=== PATIENT | female | born 1990 | race Caucasian/White ===

== ENCOUNTER 2021-07-09 10:36 | Emergency (ER) | payer SELFPAY ==
[~2021-07-09] VITALS: Ht 165.1 cm; Wt 70.0 kg
[2021-07-09 11:27] VITALS: BP 133/80
[2021-07-09 13:20] LABS: BASOPHILS % 0.7 % (0.0-2.0); HEMATOCRIT. 36.1 % (36.0-48.0); HEMOGLOBIN. 12.4 g/dL (12.0-16.0); LYMPHOCYTES % 19.5 % (20.0-50.0); MEAN CORPUSCULAR HEMOGLOBIN 30.8 pg (28.0-32.0); MEAN CORPUSCULAR VOLUME 89.8 fL (81.0-99.0); MEAN PLATELET VOLUME 7.8 fl (7.4-10.4); MONOCYTES % 5.7 % (2.0-8.0); NEUTROPHILS % 74.1 % (40.0-76.0); PLATELET 192 x1000/uL (130-400); RED BLOOD CELL COUNT 4.02 mill/uL (4.2-5.4); RED CELL DISTRIBUTION WIDTH 17.2 % (11.6-14.6)
[2021-07-09 13:25] LABS: CHLORIDE 97 mEq/L (98-107)
[2021-07-09 13:38] LABS: ETHANOL BLOOD 480 mg/dL
== END 2021-07-09 17:56 | disposition left against medical advice (07) ==
LOC: ER 10:59
DX: Z53.21 Procedure and treatment not carried out due to patient leaving prior to being seen by health care provider (principal); F10.129 Alcohol abuse with intoxication, unspecified; Y90.8 Blood alcohol level of 240 mg/100 ml or more; Z59.00 Homelessness unspecified
CPT/HCPCS: 36415; 80053; 80320; 85025; G0480

== ENCOUNTER 2021-07-31 13:45 | Emergency (ER) | payer MEDICAID ==
[~2021-07-31] VITALS: Ht 147.3 cm; Wt 61.0 kg
[2021-07-31 13:49] VITALS: BP 110/55
[2021-07-31] MEDS ORDERED: ONDANSETRON HCL 4MG/2ML INJ IV STA (16:23)
[2021-07-31] MEDS ORDERED: SODIUM CHLORIDE 0.9% 1,000 ML IV ONE (16:30)
[2021-07-31 17:02] LABS: BASOPHILS % 0.4 % (0.0-2.0); EOSINOPHILS % 0.1 % (0.0-5.0); HEMATOCRIT. 23.1 % (36.0-48.0); HEMOGLOBIN. 7.7 g/dL (12.0-16.0); LYMPHOCYTES % 12.4 % (20.0-50.0); MEAN CORPUSCULAR HEMOGLOBIN 32.3 pg (28.0-32.0); MEAN CORPUSCULAR VOLUME 97.1 fL (81.0-99.0); MEAN PLATELET VOLUME 8.4 fl (7.4-10.4); MONOCYTES % 6.8 % (2.0-8.0); NEUTROPHILS % 80.3 % (40.0-76.0); PLATELET 201 x1000/uL (130-400); RED BLOOD CELL COUNT 2.37 mill/uL (4.2-5.4); RED CELL DISTRIBUTION WIDTH 18.8 % (11.6-14.6)
[2021-07-31 17:07] LABS: CHLORIDE 80 mEq/L (98-107)
[2021-07-31 17:13] LABS: ETHANOL BLOOD < 10 mg/dL
[2021-07-31 17:16] LABS: HCG SCREEN NEGATIVE
== END 2021-07-31 23:41 | disposition left against medical advice (07) ==
LOC: ER 13:45
DX: F10.129 Alcohol abuse with intoxication, unspecified (principal); H11.33 Conjunctival hemorrhage, bilateral; Y90.9 Presence of alcohol in blood, level not specified
CPT/HCPCS: 36415; 70450; 80053; 80307; 80320; 80329; 84703; 85025; J7030; 99284; G0480

== ENCOUNTER 2021-08-24 09:15 | Emergency (ER) | payer MEDICAID, OTHER ==
[~2021-08-24] VITALS: Ht 165.1 cm; Wt 65.0 kg
[2021-08-24] MEDS ORDERED: SODIUM CHLORIDE 0.9% 1,000 ML IV ONE (09:45)
[2021-08-24 10:25] LABS: HEMATOCRIT. 26.3 % (36.0-48.0); HEMOGLOBIN. 8.4 g/dL (12.0-16.0); MEAN CORPUSCULAR VOLUME 93.4 fL (81.0-99.0); MEAN PLATELET VOLUME 7.5 fl (7.4-10.4); PLATELET 313 x1000/uL (130-400); RED BLOOD CELL COUNT 2.82 mill/uL (4.2-5.4)
[2021-08-24 10:35] LABS: CHLORIDE 107 mEq/L (98-107)
[2021-08-24 10:38] LABS: HCG SCREEN NEGATIVE
[2021-08-24 10:40] LABS: INR 1.4; PROTHROMBIN TIME 15.1 sec (9.6-11.0)
[2021-08-24 11:40] LABS: PLATELET ESTIMATE NORMAL
[2021-08-24 12:25] LABS: HEMATOCRIT 24.6 % (36.0-48.0); HEMOGLOBIN 7.9 g/dL (12.0-16.0); MEAN CORPUSCULAR HEMOGLOBIN 29.4 pg (28.0-32.0); PLATELET 308 x1000/uL (130-400); RED BLOOD CELL COUNT 2.67 mill/uL (4.2-5.4)
[2021-08-24 12:51] LABS: *BARBITURATES SCREEN URINE NEGATIVE (NEGATIVE); METHADONE URINE SCREEN NEGATIVE (NEGATIVE); OPIATES URINE SCREEN NEGATIVE (NEGATIVE)
[2021-08-24 12:52] LABS: CANNABINOID URINE SCREEN NEGATIVE (NEGATIVE); PHENCYCLIDINE URINE SCREEN NEGATIVE (NEGATIVE)
[2021-08-24 12:56] LABS: *COCAINE SCREEN URINE NEGATIVE (NEGATIVE)
[2021-08-24 12:58] LABS: *AMPHETAMINES SCREEN URINE NEGATIVE (NEGATIVE)
[2021-08-24 13:00] LABS: *BENZODIAZEPINES SCREEN URINE PRESUMTIVE POSITIVE (NEGATIVE)
[2021-08-24 21:25] VITALS: BP 100/45
== END 2021-08-24 21:44 | disposition short-term general hospital (02) ==
LOC: ER 09:35
DX: D50.0 Iron deficiency anemia secondary to blood loss (chronic) (principal); S01.81XA Laceration without foreign body of other part of head, initial encounter; Z20.822 Contact with and (suspected) exposure to COVID-19; Z98.890 Other specified postprocedural states; X58.XXXA Exposure to other specified factors, initial encounter; Y93.89 Activity, other specified; Y92.89 Other specified places as the place of occurrence of the external cause; Y99.8 Other external cause status
CPT/HCPCS: 36415; 71045; 80048; 80305; 80320; 84703; 85025; 85027; 85610; 86850; 86900; 86901; 87426; 96360; 99285; J7030; 96361; G0480

== ENCOUNTER 2021-10-09 21:59 | Emergency (ER) | payer OTHER ==
[~2021-10-09] VITALS: Ht 154.9 cm; Wt 64.0 kg
[2021-10-10 03:45] VITALS: BP 110/57
== END 2021-10-10 04:36 | disposition home or self-care (01) ==
LOC: ER 21:59
DX: T51.0X1A Toxic effect of ethanol, accidental (unintentional), initial encounter (principal); Z98.890 Other specified postprocedural states; Y92.488 Other paved roadways as the place of occurrence of the external cause
CPT/HCPCS: 99283

== ENCOUNTER 2021-10-21 11:44 | Inpatient (IN) | payer OTHER ==
[~2021-10-21] VITALS: Ht 157.5 cm; Wt 78.5 kg
[2021-10-21] MEDS ORDERED: ACETAMINOPHEN 325MG TABLET PO STA (12:38)
[2021-10-21] MEDS ORDERED: SODIUM CHLORIDE 0.9% 1,000 ML IV ONE ×2 (12:45→18:45)
[2021-10-21 13:47] LABS: CHLORIDE 86 mEq/L (98-107)
[2021-10-21 13:50] LABS: EOSINOPHILS % 0.1 % (0.0-5.0); HEMOGLOBIN. 9.1 g/dL (12.0-16.0)
[2021-10-21 13:51] LABS: ETHANOL BLOOD < 10 mg/dL
[2021-10-21 13:52] LABS: HCG SCREEN NEGATIVE
[2021-10-21 13:57] LABS: BASOPHILS % 0.3 % (0.0-2.0); HEMATOCRIT. 27.8 % (36.0-48.0); LYMPHOCYTES % 16.8 % (20.0-50.0); MEAN CORPUSCULAR HEMOGLOBIN 28.3 pg (28.0-32.0); MEAN CORPUSCULAR VOLUME 86.7 fL (81.0-99.0); MEAN PLATELET VOLUME 8.2 fl (7.4-10.4); MONOCYTES % 10.1 % (2.0-8.0); NEUTROPHILS % 72.7 % (40.0-76.0); PLATELET 103 x1000/uL (130-400); RED BLOOD CELL COUNT 3.21 mill/uL (4.2-5.4); RED CELL DISTRIBUTION WIDTH 17.5 % (11.6-14.6)
[2021-10-21] MEDS ORDERED: POTASSIUM CHLORIDE INJ 40 MEQ in DEXT 5% WATER 500 ML IV ONE (14:00)
[2021-10-21] MEDS ORDERED: CHLORDIAZEPOXIDE 25MG CAPSULE PO ONE (14:00)
[2021-10-21] MEDS ORDERED: POTASSIUM CHLORIDE 20MEQ TABLET SR PO ONE (14:00)
[2021-10-21] MEDS ORDERED: IOHEXOL-300 100 ML BOTTLE ONE (16:26)
[2021-10-21] MEDS ORDERED: KETOROLAC 15MG/ML VIAL IV ONE (19:30)
[2021-10-21] MEDS ORDERED: CHLORDIAZEPOXIDE 10MG CAPSULE PO SCH (19:30)
[2021-10-22] VITALS (21 sets, daily range): BP systolic 80–120; BP diastolic 21–78
[2021-10-22] MEDS ORDERED: ONDANSETRON HCL 4MG/2ML INJ IV PRN (01:00)
[2021-10-22] MEDS: SODIUM CHLORIDE 0.9% 1,000 ML IV SCH ×2 (01:26→13:21)
[2021-10-22 06:22] LABS: BASOPHILS % 0.8 % (0.0-2.0); EOSINOPHILS % 0.8 % (0.0-5.0); LYMPHOCYTES % 14.7 % (20.0-50.0); MEAN CORPUSCULAR HEMOGLOBIN 28.5 pg (28.0-32.0); MEAN CORPUSCULAR VOLUME 86.3 fL (81.0-99.0); MEAN PLATELET VOLUME 8.3 fl (7.4-10.4); MONOCYTES % 11.3 % (2.0-8.0); NEUTROPHILS % 72.4 % (40.0-76.0); PLATELET 75 x1000/uL (130-400); RED BLOOD CELL COUNT 2.34 mill/uL (4.2-5.4); RED CELL DISTRIBUTION WIDTH 17.2 % (11.6-14.6)
[2021-10-22] MEDS ORDERED: PANTOPRAZOLE 40MG DR TABLET PO SCH (06:30)
[2021-10-22 06:54] LABS: HEMATOCRIT. 20.2 % (36.0-48.0)
[2021-10-22 06:56] LABS: HEMOGLOBIN. 6.7 g/dL (12.0-16.0)
[2021-10-22 07:14] LABS: CHLORIDE 98 mEq/L (98-107)
[2021-10-22] MEDS ORDERED: PANTOPRAZOLE SODIUM 40 MG/VIAL IV SCH (09:00)
[2021-10-22] MEDS: MULTIVITAMINS,THER W-MINERALS TABLET PO SCH (09:00)
[2021-10-22] MEDS ORDERED: SODIUM CHLORIDE 0.9% 500 ML IV ONE (10:30)
[2021-10-22 11:14] LABS: TOTAL IRON BINDING CAPACITY 221 ug/dL (250-450)
[2021-10-22] MEDS: CEFEPIME 1,000 MG in DEXTROSE 5% WATER 50 ML IV SCH ×2 (13:22→23:54)
[2021-10-22 15:37] LABS: HEMATOCRIT 19.3 % (36.0-48.0); HEMOGLOBIN 6.2 g/dL (12.0-16.0)
[2021-10-22 15:42] LABS: FERRITIN 39 ng/mL (10-291)
[2021-10-22 15:53] LABS: HEPATITIS B SURFACE ANTIGEN NEGATIVE
[2021-10-22] MEDS: PANTOPRAZOLE SODIUM 40 MG/VIAL IV SCH (18:01)
[2021-10-22 18:02] LABS: VITAMIN B12 SERUM 1625 pg/mL (211-911)
[2021-10-22] MEDS: OCTREOTIDE 1,000 MCG in SODIUM CHLORIDE 0.9% 95 ML IV SCH (18:02)
[2021-10-22 20:37] LABS: BG BASE EXCESS -1.9 mmol/L (-2.0-2.0); BG CARBOXYHEMOGLOBIN 1.1 % (0.5-1.5); BG DEOXYHEMOGLOBIN 1.9 % (0.0-5.0); BG FRACTION INSPIRED OXYGEN 21; BG HCO3 ACT 20.6 mmol/L (22.0-26.0); BG METHEMOGLOBIN 0.4 % (0.0-1.5); BG OXYGEN SATURATION 98.1 % (92.0-98.5); BG OXYHEMOGLOBIN 96.6 % (94.0-97.0); BG PCO2 25.6 mmHg (35.0-45.0); BG PH 7.523 (7.350-7.450); BG PO2 102.1 mmHg (75.0-100.0); BG SAMPLE SITE LEFT RADIAL; BG TOTAL HEMOGLOBIN 6.9 g/dL (12.0-18.0); BG VENT MODE ROOM AIR
[2021-10-22] MEDS ORDERED: ACETAMINOPHEN 650MG SUPP PR PRN (21:15)
[2021-10-23] VITALS (49 sets, daily range): BP systolic 101–146; BP diastolic 52–89
[2021-10-23] MEDS: SODIUM CHLORIDE 0.9% 1,000 ML IV SCH ×3 (02:50→16:27)
[2021-10-23 06:01] LABS: BASOPHILS % 1.1 % (0.0-2.0); EOSINOPHILS % 0.2 % (0.0-5.0); HEMATOCRIT. 23.1 % (36.0-48.0); HEMOGLOBIN. 7.7 g/dL (12.0-16.0); MEAN CORPUSCULAR HEMOGLOBIN 29.1 pg (28.0-32.0); MEAN CORPUSCULAR VOLUME 87.3 fL (81.0-99.0); MEAN PLATELET VOLUME 8.1 fl (7.4-10.4); MONOCYTES % 12.1 % (2.0-8.0); NEUTROPHILS % 63.6 % (40.0-76.0); PLATELET 81 x1000/uL (130-400); RED BLOOD CELL COUNT 2.64 mill/uL (4.2-5.4); RED CELL DISTRIBUTION WIDTH 16.9 % (11.6-14.6)
[2021-10-23 06:14] LABS: CHLORIDE 104 mEq/L (98-107)
[2021-10-23 06:22] LABS: AMYLASE 50 IU/L (25-115)
[2021-10-23 06:26] LABS: INR 1.9; PROTHROMBIN TIME 19.3 sec (9.6-11.0)
[2021-10-23] MEDS: PANTOPRAZOLE SODIUM 40 MG/VIAL IV SCH ×2 (08:23→16:27)
[2021-10-23] MEDS: MULTIVITAMINS,THER W-MINERALS TABLET PO SCH (08:24)
[2021-10-23] MEDS ORDERED: LIDOCAINE HCL 1% 10 MG/ML 10ML VIAL ONE (10:29)
[2021-10-23] MEDS: CEFEPIME 1,000 MG in DEXTROSE 5% WATER 50 ML IV SCH ×2 (11:04→23:50)
[2021-10-23] MEDS: PHYTONADIONE 10MG/ML AMP SUBCUT SCH (11:40)
[2021-10-23] MEDS: OCTREOTIDE 1,000 MCG in SODIUM CHLORIDE 0.9% 95 ML IV SCH (12:50)
[2021-10-23] MEDS ORDERED: IOHEXOL-300 100 ML BOTTLE ONE (16:12)
[2021-10-24] VITALS (44 sets, daily range): BP systolic 100–147; BP diastolic 29–93
[2021-10-24] MEDS: SODIUM CHLORIDE 0.9% 1,000 ML IV SCH ×3 (05:31→23:20)
[2021-10-24 05:54] LABS: BASOPHILS % 1.3 % (0.0-2.0); EOSINOPHILS % 0.3 % (0.0-5.0); HEMATOCRIT. 27.6 % (36.0-48.0); HEMOGLOBIN. 9.2 g/dL (12.0-16.0); LYMPHOCYTES % 14.5 % (20.0-50.0); MEAN CORPUSCULAR HEMOGLOBIN 29.3 pg (28.0-32.0); MEAN CORPUSCULAR VOLUME 88.4 fL (81.0-99.0); MONOCYTES % 14.3 % (2.0-8.0); NEUTROPHILS % 69.6 % (40.0-76.0); RED BLOOD CELL COUNT 3.13 mill/uL (4.2-5.4); RED CELL DISTRIBUTION WIDTH 17.6 % (11.6-14.6)
[2021-10-24 05:56] LABS: CHLORIDE 105 mEq/L (98-107)
[2021-10-24 06:06] LABS: AMYLASE 66 IU/L (25-115)
[2021-10-24 06:10] LABS: INR 1.8; PROTHROMBIN TIME 18.1 sec (9.6-11.0)
[2021-10-24 07:57] LABS: PLATELET 115 x1000/uL (130-400)
[2021-10-24] MEDS: MULTIVITAMINS,THER W-MINERALS TABLET PO SCH (08:28)
[2021-10-24] MEDS: PHYTONADIONE 10MG/ML AMP SUBCUT SCH (08:29)
[2021-10-24] MEDS: PANTOPRAZOLE SODIUM 40 MG/VIAL IV SCH ×2 (08:29→17:17)
[2021-10-24] MEDS: OCTREOTIDE 1,000 MCG in SODIUM CHLORIDE 0.9% 95 ML IV SCH (09:35)
[2021-10-24] MEDS ORDERED: LACTULOSE 300 ML in WATER FOR IRRIGATION,STERILE 700 ML IR ONE (10:15)
[2021-10-24] MEDS: CEFEPIME 1,000 MG in DEXTROSE 5% WATER 50 ML IV SCH ×2 (11:06→23:20)
[2021-10-24] MEDS ORDERED: LACTULOSE 300 ML in WATER FOR IRRIGATION,STERILE 700 ML IR NR (12:30)
[2021-10-24 17:02] LABS: *BARBITURATES SCREEN URINE NEGATIVE (NEGATIVE); *BENZODIAZEPINES SCREEN URINE NEGATIVE (NEGATIVE)
[2021-10-24 17:03] LABS: *AMPHETAMINES SCREEN URINE NEGATIVE (NEGATIVE); *COCAINE SCREEN URINE NEGATIVE (NEGATIVE); METHADONE URINE SCREEN NEGATIVE (NEGATIVE); OPIATES URINE SCREEN NEGATIVE (NEGATIVE); PHENCYCLIDINE URINE SCREEN NEGATIVE (NEGATIVE)
[2021-10-24 17:04] LABS: CANNABINOID URINE SCREEN NEGATIVE (NEGATIVE)
[2021-10-25] VITALS (12 sets, daily range): BP systolic 91–148; BP diastolic 38–81
[2021-10-25] MEDS: OCTREOTIDE 1,000 MCG in SODIUM CHLORIDE 0.9% 95 ML IV SCH (05:33)
[2021-10-25 07:09] LABS: HEMOGLOBIN. 8.1 g/dL (12.0-16.0); MEAN CORPUSCULAR HEMOGLOBIN 28.8 pg (28.0-32.0); MEAN CORPUSCULAR VOLUME 89.1 fL (81.0-99.0); MEAN PLATELET VOLUME 7.7 fl (7.4-10.4); PLATELET 131 x1000/uL (130-400); RED BLOOD CELL COUNT 2.81 mill/uL (4.2-5.4); RED CELL DISTRIBUTION WIDTH 17.8 % (11.6-14.6)
[2021-10-25 07:24] LABS: INR 1.6; PROTHROMBIN TIME 16.7 sec (9.6-11.0)
[2021-10-25 07:26] LABS: CHLORIDE 106 mEq/L (98-107)
[2021-10-25 07:38] LABS: AMYLASE 49 IU/L (25-115)
[2021-10-25] MEDS: MULTIVITAMINS,THER W-MINERALS TABLET PO SCH (09:00)
[2021-10-25] MEDS: PHYTONADIONE 10MG/ML AMP SUBCUT SCH (10:10)
[2021-10-25] MEDS ORDERED: POTASSIUM CHLORIDE INJ 40 MEQ in DEXT 5% WATER 250 ML IV ONE (10:15)
[2021-10-25] MEDS: CEFEPIME 1,000 MG in DEXTROSE 5% WATER 50 ML IV SCH (12:20)
[2021-10-25] MEDS: PANTOPRAZOLE SODIUM 40 MG/VIAL IV SCH ×2 (12:20→17:42)
[2021-10-25] MEDS: KCL 20MEQ/100ML X 2 FOR TOTAL KCL 40MEQ/200ML IV SCH ×2 (13:11→15:38)
[2021-10-25] MEDS: SODIUM CHLORIDE 0.9% 1,000 ML IV SCH (15:38)
[2021-10-25 16:20] LABS: PLATELET ESTIMATE NORMAL
[2021-10-25] MEDS ORDERED: LACTULOSE 300 ML in WATER FOR IRRIGATION,STERILE 700 ML IR SCH (17:00)
[2021-10-26] VITALS (12 sets, daily range): BP systolic 98–126; BP diastolic 56–88
[2021-10-26] MEDS: CEFEPIME 1,000 MG in DEXTROSE 5% WATER 50 ML IV SCH ×3 (00:17→22:55)
[2021-10-26] MEDS: SODIUM CHLORIDE 0.9% 1,000 ML IV SCH ×3 (05:00→16:19)
[2021-10-26] MEDS: MULTIVITAMINS,THER W-MINERALS TABLET PO SCH (08:48)
[2021-10-26] MEDS: PANTOPRAZOLE SODIUM 40 MG/VIAL IV SCH ×2 (08:48→16:18)
[2021-10-26] MEDS: LACTULOSE 20G/30ML UDC PO SCH (22:54)
[2021-10-27] VITALS (12 sets, daily range): BP systolic 80–109; BP diastolic 51–64
[2021-10-27] MEDS: SODIUM CHLORIDE 0.9% 1,000 ML IV SCH ×3 (04:00→23:00)
[2021-10-27] MEDS: LACTULOSE 20G/30ML UDC PO SCH ×3 (06:00→22:00)
[2021-10-27 06:34] LABS: CHLORIDE 105 mEq/L (98-107); HEMATOCRIT. 25.1 % (36.0-48.0); HEMOGLOBIN. 8.2 g/dL (12.0-16.0); MEAN CORPUSCULAR HEMOGLOBIN 28.8 pg (28.0-32.0); MEAN CORPUSCULAR VOLUME 88.4 fL (81.0-99.0); MEAN PLATELET VOLUME 7.5 fl (7.4-10.4); PLATELET 175 x1000/uL (130-400); RED BLOOD CELL COUNT 2.84 mill/uL (4.2-5.4); RED CELL DISTRIBUTION WIDTH 18.3 % (11.6-14.6)
[2021-10-27] MEDS: MULTIVITAMINS,THER W-MINERALS TABLET PO SCH (09:00)
[2021-10-27] MEDS ORDERED: POTASSIUM CHLORIDE INJ 40 MEQ in DEXT 5% WATER 250 ML IV ONE (09:00)
[2021-10-27] MEDS: PANTOPRAZOLE SODIUM 40 MG/VIAL IV SCH ×2 (09:56→17:40)
[2021-10-27 10:27] LABS: PLATELET ESTIMATE NORMAL
[2021-10-27] MEDS: CEFEPIME 1,000 MG in DEXTROSE 5% WATER 50 ML IV SCH (10:59)
[2021-10-27] MEDS: KCL 20MEQ/100ML X 2 FOR TOTAL KCL 40MEQ/200ML IV SCH ×2 (11:36→13:57)
[2021-10-28] VITALS (12 sets, daily range): BP systolic 103–126; BP diastolic 57–96
[2021-10-28] MEDS: LACTULOSE 20G/30ML UDC PO SCH ×3 (06:00→22:27)
[2021-10-28 06:52] LABS: HEMATOCRIT. 23.7 % (36.0-48.0); HEMOGLOBIN. 7.8 g/dL (12.0-16.0); MEAN CORPUSCULAR HEMOGLOBIN 28.8 pg (28.0-32.0); MEAN CORPUSCULAR VOLUME 87.7 fL (81.0-99.0); MEAN PLATELET VOLUME 7.1 fl (7.4-10.4); PLATELET 171 x1000/uL (130-400)
[2021-10-28] MEDS: SODIUM CHLORIDE 0.9% 1,000 ML IV SCH ×2 (07:00→16:26)
[2021-10-28 07:03] LABS: CHLORIDE 106 mEq/L (98-107)
[2021-10-28] MEDS: PANTOPRAZOLE SODIUM 40 MG/VIAL IV SCH ×2 (11:12→16:26)
[2021-10-28] MEDS ORDERED: TRAMADOL 50MG TABLET PO PRN (13:30)
[2021-10-28] MEDS: RIFAXIMIN 550 MG TABLET PO SCH ×2 (14:00→22:27)
[2021-10-28] MEDS ORDERED: POTASSIUM CHLORIDE 20MEQ TABLET SR PO ONE (14:00)
[2021-10-28] MEDS: MULTIVITAMINS,THER W-MINERALS TABLET PO SCH (14:00)
[2021-10-28 14:10] LABS: PLATELET ESTIMATE NORMAL
[2021-10-28] MEDS: IPRATROPIUM/ALBUTEROL 0.5-3(2.5)MG/3ML NEB HHN SCH (20:56)
[2021-10-29] VITALS (12 sets, daily range): BP systolic 102–133; BP diastolic 55–81
[2021-10-29] MEDS: IPRATROPIUM/ALBUTEROL 0.5-3(2.5)MG/3ML NEB HHN SCH ×3 (00:56→21:12)
[2021-10-29] MEDS: SODIUM CHLORIDE 0.9% 1,000 ML IV SCH ×3 (03:26→22:02)
[2021-10-29] MEDS: LACTULOSE 20G/30ML UDC PO SCH ×3 (05:24→21:38)
[2021-10-29 06:48] LABS: MEAN CORPUSCULAR HEMOGLOBIN 28.9 pg (28.0-32.0); MEAN CORPUSCULAR VOLUME 87.1 fL (81.0-99.0); MEAN PLATELET VOLUME 7.2 fl (7.4-10.4); PLATELET 200 x1000/uL (130-400); RED BLOOD CELL COUNT 2.76 mill/uL (4.2-5.4); RED CELL DISTRIBUTION WIDTH 18.3 % (11.6-14.6)
[2021-10-29 07:26] LABS: CHLORIDE 101 mEq/L (98-107)
[2021-10-29] MEDS: RIFAXIMIN 550 MG TABLET PO SCH ×2 (09:50→21:38)
[2021-10-29] MEDS: MULTIVITAMINS,THER W-MINERALS TABLET PO SCH (09:50)
[2021-10-29] MEDS: PANTOPRAZOLE SODIUM 40 MG/VIAL IV SCH ×2 (09:50→17:27)
[2021-10-29] MEDS ORDERED: POTASSIUM CHLORIDE 20MEQ/PACKET NG NR (10:00)
[2021-10-29 16:28] LABS: PLATELET ESTIMATE NORMAL
[2021-10-29] MEDS: ACETAMINOPHEN 325MG TABLET PO PRN (23:22)
[2021-10-30] VITALS (34 sets, daily range): BP systolic 76–107; BP diastolic 40–67
[2021-10-30] MEDS: IPRATROPIUM/ALBUTEROL 0.5-3(2.5)MG/3ML NEB HHN SCH ×3 (01:04→20:57)
[2021-10-30 05:48] LABS: BASOPHILS % 0.2 % (0.0-2.0); EOSINOPHILS % 0.1 % (0.0-5.0); HEMATOCRIT. 24.3 % (36.0-48.0); HEMOGLOBIN. 7.9 g/dL (12.0-16.0); LYMPHOCYTES % 15.6 % (20.0-50.0); MEAN CORPUSCULAR HEMOGLOBIN 28.4 pg (28.0-32.0); MEAN CORPUSCULAR VOLUME 87.7 fL (81.0-99.0); MEAN PLATELET VOLUME 7.3 fl (7.4-10.4); MONOCYTES % 11.6 % (2.0-8.0); NEUTROPHILS % 72.5 % (40.0-76.0); PLATELET 171 x1000/uL (130-400); RED BLOOD CELL COUNT 2.78 mill/uL (4.2-5.4); RED CELL DISTRIBUTION WIDTH 18.5 % (11.6-14.6)
[2021-10-30] MEDS: LACTULOSE 20G/30ML UDC PO SCH ×3 (05:49→21:45)
[2021-10-30 06:09] LABS: CHLORIDE 106 mEq/L (98-107)
[2021-10-30] MEDS ORDERED: ETOMIDATE 2MG/ML 10ML VIAL IV ONE (09:12)
[2021-10-30] MEDS ORDERED: VECURONIUM BROMIDE 10 MG/VIAL IV ONE (09:12)
[2021-10-30] MEDS ORDERED: SUCCINYLCHOLINE CHLORIDE 200MG/10ML IV ONE (09:12)
[2021-10-30] MEDS ORDERED: NALOXONE HCL 0.4MG/ML VIAL IV PRN (09:30)
[2021-10-30] MEDS ORDERED: POTASSIUM CHLORIDE INJ 40 MEQ in DEXT 5% WATER 250 ML IV ONE (09:30)
[2021-10-30] MEDS: MULTIVITAMINS,THER W-MINERALS TABLET PO SCH (09:37)
[2021-10-30] MEDS: RIFAXIMIN 550 MG TABLET PO SCH ×2 (09:37→23:30)
[2021-10-30] MEDS: PANTOPRAZOLE SODIUM 40 MG/VIAL IV SCH ×2 (09:38→19:01)
[2021-10-30] MEDS: SODIUM CHLORIDE 0.9% 1,000 ML IV SCH ×2 (09:38→21:19)
[2021-10-30 11:35] LABS: BG BASE EXCESS -3.8 mmol/L (-2.0-2.0); BG CARBOXYHEMOGLOBIN 0.9 % (0.5-1.5); BG FRACTION INSPIRED OXYGEN 44; BG HCO3 ACT 19.2 mmol/L (22.0-26.0); BG METHEMOGLOBIN 0.4 % (0.0-1.5); BG OXYGEN SATURATION 86.8 % (92.0-98.5); BG OXYHEMOGLOBIN 85.7 % (94.0-97.0); BG PCO2 27.7 mmHg (35.0-45.0); BG PH 7.459 (7.350-7.450); BG PO2 54.5 mmHg (75.0-100.0); BG SAMPLE SITE LEFT RADIAL; BG TOTAL HEMOGLOBIN 8.9 g/dL (12.0-18.0); BG VENT MODE NASAL CANNULA
[2021-10-30] MEDS ORDERED: SODIUM CHLORIDE 0.45% 500 ML IV ONE (12:30)
[2021-10-30] MEDS: KCL 20MEQ/100ML X 2 FOR TOTAL KCL 40MEQ/200ML IV SCH ×2 (13:49→18:56)
[2021-10-30] MEDS: CEFEPIME 1,000 MG in DEXTROSE 5% WATER 50 ML IV SCH (13:50)
[2021-10-30] MEDS: ACETAMINOPHEN 325MG TABLET PO PRN (13:58)
[2021-10-30 14:05] LABS: CLARITY URINE CLEAR (CLEAR); COLOR URINE DARK YELLOW (YELLOW); KETONES URINE TRACE (NEGATIVE); LEUKOCYTE ESTERASE URINE 1+ (NEGATIVE); NITRITE URINE NEGATIVE (NEGATIVE); OCCULT BLOOD URINE NEGATIVE (NEGATIVE); PROTEIN URINE NEGATIVE (NEGATIVE); SPECIFIC GRAVITY URINE 1.017 (1.005-1.030)
[2021-10-30] MEDS ORDERED: FENTANYL CITRATE/PF 2,500 MCG in SODIUM CHLORIDE 0.9% 200 ML IV PRN (16:45)
[2021-10-30] MEDS ORDERED: MIDAZOLAM HCL 100 MG in SODIUM CHLORIDE 0.9% 80 ML IV PRN (16:45)
[2021-10-30] MEDS: PHENYLEPHRINE 100 MG in DEXT 5% WATER 240 ML IV PRN (17:00)
[2021-10-30 17:38] LABS: BG BASE EXCESS -5.8 mmol/L (-2.0-2.0); BG CARBOXYHEMOGLOBIN 0.3 % (0.5-1.5); BG DEOXYHEMOGLOBIN 0.3 % (0.0-5.0); BG HCO3 ACT 18.7 mmol/L (22.0-26.0); BG METHEMOGLOBIN 0.1 % (0.0-1.5); BG OXYGEN SATURATION 99.7 % (92.0-98.5); BG OXYHEMOGLOBIN 99.3 % (94.0-97.0); BG PCO2 32.9 mmHg (35.0-45.0); BG PH 7.372 (7.350-7.450); BG PO2 209.9 mmHg (75.0-100.0); BG SAMPLE SITE RIGHT RADIAL; BG TOTAL HEMOGLOBIN 9.2 g/dL (12.0-18.0); BG VENT MODE VENT - AC
[2021-10-30] MEDS: FENTANYL 2500MCG/250ML PMX 250 ML IV PRN (18:56)
[2021-10-31] VITALS (98 sets, daily range): BP systolic 73–138; BP diastolic 33–87
[2021-10-31] MEDS: CEFEPIME 1,000 MG in DEXTROSE 5% WATER 50 ML IV SCH ×2 (00:27→15:06)
[2021-10-31] MEDS: IPRATROPIUM/ALBUTEROL 0.5-3(2.5)MG/3ML NEB HHN SCH ×4 (00:29→20:18)
[2021-10-31 05:47] LABS: BASOPHILS % 0.7 % (0.0-2.0); EOSINOPHILS % 1.1 % (0.0-5.0); HEMOGLOBIN. 9.1 g/dL (12.0-16.0); LYMPHOCYTES % 22.8 % (20.0-50.0); MEAN CORPUSCULAR HEMOGLOBIN 28.7 pg (28.0-32.0); MEAN CORPUSCULAR VOLUME 88.5 fL (81.0-99.0); MEAN PLATELET VOLUME 7.6 fl (7.4-10.4); MONOCYTES % 2.2 % (2.0-8.0); NEUTROPHILS % 73.2 % (40.0-76.0); PLATELET 273 x1000/uL (130-400); RED BLOOD CELL COUNT 3.16 mill/uL (4.2-5.4); RED CELL DISTRIBUTION WIDTH 18.9 % (11.6-14.6)
[2021-10-31 06:06] LABS: CHLORIDE 109 mEq/L (98-107)
[2021-10-31] MEDS: LACTULOSE 20G/30ML UDC PO SCH ×3 (07:24→21:54)
[2021-10-31] MEDS: NOREPINEPHRINE 32 MG in DEXT 5% WATER 218 ML IV PRN (08:12)
[2021-10-31] MEDS: MULTIVITAMINS,THER W-MINERALS TABLET PO SCH (08:30)
[2021-10-31] MEDS: PANTOPRAZOLE SODIUM 40 MG/VIAL IV SCH ×2 (08:30→17:13)
[2021-10-31 09:24] LABS: BG FRACTION INSPIRED OXYGEN 80; BG HCO3 ACT 15.8 mmol/L (22.0-26.0); BG METHEMOGLOBIN 0.5 % (0.0-1.5); BG OXYHEMOGLOBIN 90.5 % (94.0-97.0); BG PCO2 30.2 mmHg (35.0-45.0); BG PH 7.336 (7.350-7.450); BG PO2 66.3 mmHg (75.0-100.0); BG SAMPLE SITE RIGHT RADIAL; BG TOTAL HEMOGLOBIN 9.3 g/dL (12.0-18.0); BG VENT MODE VENT - AC
[2021-10-31] MEDS: PHENYLEPHRINE 100 MG in DEXT 5% WATER 240 ML IV PRN ×2 (09:51→18:17)
[2021-10-31] MEDS ORDERED: VANCOMYCIN 1500MG in DEXTROSE 5% WATER 250ML IV NR (11:00)
[2021-10-31] MEDS ORDERED: SODIUM BICARBONATE 100 MEQ in SODIUM CHLORIDE 0.45% 1,000 ML IV SCH (11:00)
[2021-10-31] MEDS: SODIUM BICARBONATE 100 MEQ in DEXTROSE 5% WATER 1,000 ML IV SCH ×2 (11:00→21:56)
[2021-10-31] MEDS: PROPOFOL 10MG/ML 100ML 100 ML IV PRN ×3 (11:23→20:05)
[2021-10-31] MEDS ORDERED: VECURONIUM BROMIDE 50 MG in DEXTROSE 5% WATER 50 ML IV PRN (11:30)
[2021-10-31] MEDS ORDERED: METHYLPREDNISOLONE SOD SUCC 125 MG/2 ML VIAL IV NR (11:30)
[2021-10-31] MEDS ORDERED: VASOPRESSIN 20 UNIT in SODIUM CHLORIDE 0.9% 99 ML IV PRN (11:45)
[2021-10-31] MEDS: RIFAXIMIN 550 MG TABLET PO SCH ×2 (12:03→21:32)
[2021-10-31 15:37] LABS: BG CARBOXYHEMOGLOBIN 0.8 % (0.5-1.5); BG DEOXYHEMOGLOBIN 18.4 % (0.0-5.0); BG FRACTION INSPIRED OXYGEN 100; BG HCO3 ACT 11.5 mmol/L (22.0-26.0); BG METHEMOGLOBIN 0.3 % (0.0-1.5); BG OXYGEN SATURATION 81.4 % (92.0-98.5); BG OXYHEMOGLOBIN 80.5 % (94.0-97.0); BG PCO2 46.8 mmHg (35.0-45.0); BG PH 7.008 (7.350-7.450); BG PO2 66.8 mmHg (75.0-100.0); BG SAMPLE SITE RIGHT RADIAL; BG TOTAL HEMOGLOBIN 11.1 g/dL (12.0-18.0); BG VENT MODE PRVC
[2021-10-31] MEDS ORDERED: MIDAZOLAM 100MG/100ML PREMIX IV PRN (15:45)
[2021-10-31] MEDS ORDERED: SODIUM BICARBONATE 8.4% 1 MEQ/ML 50ML SYR IV NR (15:45)
[2021-10-31] MEDS: METHYLPREDNISOLONE SOD SUCC 125 MG/2 ML VIAL IV SCH (17:13)
[2021-10-31] MEDS ORDERED: DEXTROSE 50% WATER 50ML SYRINGE IV ONE (20:00)
[2021-10-31] MEDS ORDERED: DEXTROSE 50% WATER 50ML SYRINGE IV PRN (20:15)
[2021-10-31] MEDS: VANCOMYCIN 750 MG in DEXT 5% WATER 250 ML IV SCH (21:32)
[2021-10-31] MEDS ORDERED: VANCOMYCIN 1,000 MG in DEXT 5% WATER 250 ML IV SCH (22:00)
[2021-10-31] MEDS: FENTANYL 2500MCG/250ML PMX 250 ML IV PRN (22:03)
[2021-11-01] VITALS (100 sets, daily range): BP systolic 37–148; BP diastolic 21–92
[2021-11-01] MEDS: CEFEPIME 1,000 MG in DEXTROSE 5% WATER 50 ML IV SCH ×2 (00:14→12:48)
[2021-11-01] MEDS: METHYLPREDNISOLONE SOD SUCC 125 MG/2 ML VIAL IV SCH ×2 (00:15→05:43)
[2021-11-01] MEDS: IPRATROPIUM/ALBUTEROL 0.5-3(2.5)MG/3ML NEB HHN SCH ×4 (00:21→20:46)
[2021-11-01] MEDS: PROPOFOL 10MG/ML 100ML 100 ML IV PRN ×2 (01:48→05:50)
[2021-11-01] MEDS: PHENYLEPHRINE 100 MG in DEXT 5% WATER 240 ML IV PRN ×2 (02:53→11:10)
[2021-11-01] MEDS: NOREPINEPHRINE 32 MG in DEXT 5% WATER 218 ML IV PRN (04:09)
[2021-11-01] MEDS: VANCOMYCIN 750 MG in DEXT 5% WATER 250 ML IV SCH (05:43)
[2021-11-01] MEDS: LACTULOSE 20G/30ML UDC PO SCH ×3 (05:43→21:28)
[2021-11-01 06:29] LABS: BASOPHILS % 0.2 % (0.0-2.0); EOSINOPHILS % 0.2 % (0.0-5.0); HEMOGLOBIN. 9.1 g/dL (12.0-16.0); LYMPHOCYTES % 7.3 % (20.0-50.0); MEAN CORPUSCULAR HEMOGLOBIN 28.8 pg (28.0-32.0); MEAN CORPUSCULAR VOLUME 88.5 fL (81.0-99.0); MEAN PLATELET VOLUME 7.8 fl (7.4-10.4); MONOCYTES % 2.8 % (2.0-8.0); NEUTROPHILS % 89.5 % (40.0-76.0); PLATELET 203 x1000/uL (130-400); RED BLOOD CELL COUNT 3.16 mill/uL (4.2-5.4); RED CELL DISTRIBUTION WIDTH 19.2 % (11.6-14.6)
[2021-11-01] MEDS: SODIUM BICARBONATE 100 MEQ in DEXTROSE 5% WATER 1,000 ML IV SCH ×2 (09:40→22:23)
[2021-11-01 09:45] LABS: BG BASE EXCESS -5.2 mmol/L (-2.0-2.0); BG CARBOXYHEMOGLOBIN 0.3 % (0.5-1.5); BG FRACTION INSPIRED OXYGEN 100; BG HCO3 ACT 19.8 mmol/L (22.0-26.0); BG METHEMOGLOBIN 0.2 % (0.0-1.5); BG OXYHEMOGLOBIN 99.5 % (94.0-97.0); BG PCO2 36.5 mmHg (35.0-45.0); BG PH 7.353 (7.350-7.450); BG PO2 300.2 mmHg (75.0-100.0); BG SAMPLE SITE RIGHT RADIAL; BG TOTAL HEMOGLOBIN 9.4 g/dL (12.0-18.0); BG VENT MODE VENT - PRVC
[2021-11-01] MEDS: MULTIVITAMINS,THER W-MINERALS TABLET PO SCH (10:22)
[2021-11-01] MEDS: PANTOPRAZOLE SODIUM 40 MG/VIAL IV SCH ×2 (10:22→18:49)
[2021-11-01] MEDS: RIFAXIMIN 550 MG TABLET PO SCH ×2 (10:22→21:27)
[2021-11-01] MEDS: METHYLPREDNISOLONE SOD SUCC 40 MG/ML VIAL IV SCH ×2 (15:13→21:27)
[2021-11-01] MEDS ORDERED: VASOPRESSIN 20 UNIT in SODIUM CHLORIDE 0.9% 99 ML IV PRN (15:30)
[2021-11-02] VITALS (99 sets, daily range): BP systolic 79–200; BP diastolic 43–113
[2021-11-02] MEDS: IPRATROPIUM/ALBUTEROL 0.5-3(2.5)MG/3ML NEB HHN SCH ×4 (01:11→20:25)
[2021-11-02] MEDS: CEFEPIME 1,000 MG in DEXTROSE 5% WATER 50 ML IV SCH ×2 (01:54→14:00)
[2021-11-02] MEDS: PHENYLEPHRINE 100 MG in DEXT 5% WATER 240 ML IV PRN (04:29)
[2021-11-02] MEDS ORDERED: VANCOMYCIN 1,000 MG in DEXT 5% WATER 250 ML IV PRN (06:00)
[2021-11-02] MEDS: LACTULOSE 20G/30ML UDC PO SCH ×3 (06:06→22:31)
[2021-11-02] MEDS: METHYLPREDNISOLONE SOD SUCC 40 MG/ML VIAL IV SCH ×3 (06:06→22:31)
[2021-11-02 06:29] LABS: HEMATOCRIT. 26.7 % (36.0-48.0); HEMOGLOBIN. 8.8 g/dL (12.0-16.0); MEAN CORPUSCULAR HEMOGLOBIN 28.4 pg (28.0-32.0); MEAN CORPUSCULAR VOLUME 86.1 fL (81.0-99.0); MEAN PLATELET VOLUME 7.7 fl (7.4-10.4); PLATELET 114 x1000/uL (130-400); RED BLOOD CELL COUNT 3.09 mill/uL (4.2-5.4); RED CELL DISTRIBUTION WIDTH 19.4 % (11.6-14.6)
[2021-11-02 06:37] LABS: PROTHROMBIN TIME 20.1 sec (9.6-11.0)
[2021-11-02 07:55] LABS: BG BASE EXCESS -1.2 mmol/L (-2.0-2.0); BG CARBOXYHEMOGLOBIN 0.3 % (0.5-1.5); BG FRACTION INSPIRED OXYGEN 65; BG HCO3 ACT 22.3 mmol/L (22.0-26.0); BG METHEMOGLOBIN 0.2 % (0.0-1.5); BG OXYHEMOGLOBIN 97.5 % (94.0-97.0); BG PCO2 32.7 mmHg (35.0-45.0); BG PH 7.452 (7.350-7.450); BG PO2 101.5 mmHg (75.0-100.0); BG SAMPLE SITE LEFT RADIAL; BG TOTAL HEMOGLOBIN 9.1 g/dL (12.0-18.0); BG VENT MODE PRVC
[2021-11-02] MEDS ORDERED: POTASSIUM CHLORIDE INJ 40 MEQ in DEXT 5% WATER 250 ML IV ONE (08:15)
[2021-11-02] MEDS ORDERED: MAGNESIUM 2 G PREMIX 50 ML IV NR ×2 (08:15→10:00)
[2021-11-02] MEDS: MULTIVITAMINS,THER W-MINERALS TABLET PO SCH (09:27)
[2021-11-02] MEDS: RIFAXIMIN 550 MG TABLET PO SCH (09:27)
[2021-11-02] MEDS: SODIUM CHLORIDE 0.9% 1,000 ML IV SCH (09:28)
[2021-11-02] MEDS: PANTOPRAZOLE SODIUM 40 MG/VIAL IV SCH ×2 (09:28→17:15)
[2021-11-02] MEDS: KCL 20MEQ/100ML X 2 FOR TOTAL KCL 40MEQ/200ML IV SCH ×2 (09:49→11:55)
[2021-11-02] MEDS: LINEZOLID 600 MG PREMIX 300 ML IV SCH ×2 (13:07→22:32)
[2021-11-02 13:34] LABS: NUCLEATED RED BLOOD CELLS 2 /100 WBC; PLATELET ESTIMATE DECREASED
[2021-11-02] MEDS: METRONIDAZOLE 500 MG PREMIX 100 ML IV SCH ×2 (14:41→22:35)
[2021-11-02 15:40] LABS: CREATINE KINASE 191 IU/L (26-192)
[2021-11-02] MEDS: ACETYLCYSTEINE 100MG/ML 10% VIAL 4ML INH SCH ×2 (15:52→20:25)
[2021-11-02] MEDS: METOCLOPRAMIDE HCL 10MG/2ML VIAL IV SCH (17:15)
[2021-11-03] VITALS (93 sets, daily range): BP systolic 74–235; BP diastolic 43–140
[2021-11-03] MEDS: CEFEPIME 1,000 MG in DEXTROSE 5% WATER 50 ML IV SCH ×2 (00:11→13:00)
[2021-11-03] MEDS: METOCLOPRAMIDE HCL 10MG/2ML VIAL IV SCH ×4 (00:11→17:09)
[2021-11-03] MEDS: IPRATROPIUM/ALBUTEROL 0.5-3(2.5)MG/3ML NEB HHN SCH ×4 (01:51→20:24)
[2021-11-03] MEDS: METHYLPREDNISOLONE SOD SUCC 40 MG/ML VIAL IV SCH ×3 (05:36→21:24)
[2021-11-03] MEDS: SODIUM CHLORIDE 0.9% 1,000 ML IV SCH ×2 (05:36→17:09)
[2021-11-03] MEDS: METRONIDAZOLE 500 MG PREMIX 100 ML IV SCH ×3 (05:36→21:24)
[2021-11-03] MEDS: LACTULOSE 20G/30ML UDC PO SCH (05:36)
[2021-11-03 08:16] LABS: BG CARBOXYHEMOGLOBIN 0.3 % (0.5-1.5); BG DEOXYHEMOGLOBIN 1.7 % (0.0-5.0); BG FRACTION INSPIRED OXYGEN 90; BG HCO3 ACT 23.9 mmol/L (22.0-26.0); BG METHEMOGLOBIN 0.8 % (0.0-1.5); BG OXYGEN SATURATION 98.3 % (92.0-98.5); BG OXYHEMOGLOBIN 97.2 % (94.0-97.0); BG PCO2 35.2 mmHg (35.0-45.0); BG PH 7.449 (7.350-7.450); BG PO2 125.1 mmHg (75.0-100.0); BG SAMPLE SITE RIGHT BRACHIAL; BG TOTAL HEMOGLOBIN 8.4 g/dL (12.0-18.0); BG VENT MODE PRVC
[2021-11-03] MEDS: ACETYLCYSTEINE 100MG/ML 10% VIAL 4ML INH SCH ×2 (08:27→14:35)
[2021-11-03 09:26] LABS: HEMOGLOBIN. 7.5 g/dL (12.0-16.0); MEAN CORPUSCULAR VOLUME 86.6 fL (81.0-99.0); MEAN PLATELET VOLUME 7.6 fl (7.4-10.4); PLATELET 64 x1000/uL (130-400); RED BLOOD CELL COUNT 2.69 mill/uL (4.2-5.4); RED CELL DISTRIBUTION WIDTH 19.2 % (11.6-14.6)
[2021-11-03 09:38] LABS: HEMATOCRIT. 23.3 % (36.0-48.0)
[2021-11-03] MEDS: LINEZOLID 600 MG PREMIX 300 ML IV SCH (10:04)
[2021-11-03] MEDS: MULTIVITAMINS,THER W-MINERALS TABLET PO SCH (10:04)
[2021-11-03] MEDS: PANTOPRAZOLE SODIUM 40 MG/VIAL IV SCH ×2 (10:04→17:09)
[2021-11-03 12:28] LABS: PLATELET ESTIMATE DECREASED
[2021-11-03] MEDS: MIDODRINE HCL 5MG TABLET PO SCH ×2 (12:59→17:09)
[2021-11-03] MEDS: DAPTOMYCIN 500 MG in SODIUM CHLORIDE 0.9% 50 ML IV SCH (13:11)
[2021-11-03 15:35] LABS: CREATINE KINASE 118 IU/L (26-192)
[2021-11-03] MEDS: PROPOFOL 10MG/ML 100ML 100 ML IV PRN ×3 (16:00→21:45)
[2021-11-03] MEDS: FENTANYL 2500MCG/250ML PMX 250 ML IV PRN (19:46)
[2021-11-04] VITALS (95 sets, daily range): BP systolic 92–114; BP diastolic 49–69
[2021-11-04] MEDS: CEFEPIME 1,000 MG in DEXTROSE 5% WATER 50 ML IV SCH ×2 (00:03→13:00)
[2021-11-04] MEDS: METOCLOPRAMIDE HCL 10MG/2ML VIAL IV SCH ×4 (00:36→17:07)
[2021-11-04] MEDS: IPRATROPIUM/ALBUTEROL 0.5-3(2.5)MG/3ML NEB HHN SCH ×3 (03:11→19:55)
[2021-11-04] MEDS: ACETYLCYSTEINE 100MG/ML 10% VIAL 4ML INH SCH ×3 (03:12→14:43)
[2021-11-04] MEDS: SODIUM CHLORIDE 0.9% 1,000 ML IV SCH (03:19)
[2021-11-04 04:47] LABS: BASOPHILS % 0.1 % (0.0-2.0); EOSINOPHILS % 0.2 % (0.0-5.0); HEMATOCRIT. 24.9 % (36.0-48.0); HEMOGLOBIN. 8.1 g/dL (12.0-16.0); LYMPHOCYTES % 10.5 % (20.0-50.0); MEAN CORPUSCULAR HEMOGLOBIN 28.4 pg (28.0-32.0); MEAN CORPUSCULAR VOLUME 87.2 fL (81.0-99.0); MEAN PLATELET VOLUME 8.4 fl (7.4-10.4); MONOCYTES % 2.7 % (2.0-8.0); NEUTROPHILS % 86.5 % (40.0-76.0); PLATELET 102 x1000/uL (130-400); RED BLOOD CELL COUNT 2.86 mill/uL (4.2-5.4); RED CELL DISTRIBUTION WIDTH 19.6 % (11.6-14.6)
[2021-11-04] MEDS: METHYLPREDNISOLONE SOD SUCC 40 MG/ML VIAL IV SCH ×3 (06:41→21:56)
[2021-11-04] MEDS: METRONIDAZOLE 500 MG PREMIX 100 ML IV SCH ×3 (06:41→21:56)
[2021-11-04] MEDS: PROPOFOL 10MG/ML 100ML 100 ML IV PRN ×3 (06:47→21:57)
[2021-11-04] MEDS: LACTULOSE 20G/30ML UDC PO SCH (08:16)
[2021-11-04] MEDS: PANTOPRAZOLE SODIUM 40 MG/VIAL IV SCH (08:16)
[2021-11-04] MEDS: MULTIVITAMINS,THER W-MINERALS TABLET PO SCH (08:16)
[2021-11-04] MEDS: MIDODRINE HCL 5MG TABLET PO SCH ×3 (08:16→17:07)
[2021-11-04 08:30] LABS: BG BASE EXCESS -4.2 mmol/L (-2.0-2.0); BG CARBOXYHEMOGLOBIN 0.4 % (0.5-1.5); BG DEOXYHEMOGLOBIN 5.8 % (0.0-5.0); BG FRACTION INSPIRED OXYGEN 100; BG HCO3 ACT 20.5 mmol/L (22.0-26.0); BG METHEMOGLOBIN 0.3 % (0.0-1.5); BG OXYGEN SATURATION 94.2 % (92.0-98.5); BG OXYHEMOGLOBIN 93.5 % (94.0-97.0); BG PCO2 35.7 mmHg (35.0-45.0); BG PH 7.376 (7.350-7.450); BG PO2 79.4 mmHg (75.0-100.0); BG TOTAL HEMOGLOBIN 9.2 g/dL (12.0-18.0); BG VENT MODE VENT - PRVC/AC
[2021-11-04] MEDS ORDERED: DEXTROSE 50% WATER 50ML SYRINGE IV PRN (08:30)
[2021-11-04] MEDS: IPRATROPIUM/ALBUTEROL 0.5-3(2.5)MG/3ML NEB HHN PRN ×2 (08:54→12:53)
[2021-11-04] MEDS: FAMOTIDINE 20MG/2ML VIAL IV SCH (11:07)
[2021-11-04] MEDS: DEXT 5%/0.9% NACL 1,000 ML IV SCH ×2 (11:08→23:20)
[2021-11-04] MEDS: BLOOD SUGAR DIAGNOSTIC STRIP TEST SCH ×2 (11:32→17:03)
[2021-11-04] MEDS: PHENYLEPHRINE 100 MG in DEXT 5% WATER 240 ML IV PRN (12:19)
[2021-11-04] MEDS ORDERED: FENTANYL 2500MCG/250ML PMX 250 ML IV PRN (18:45)
[2021-11-04] MEDS: FENTANYL 2500MCG/250ML PMX 250 ML IV PRN (19:14)
[2021-11-04] MEDS ORDERED: FAMOTIDINE 20MG/2ML VIAL IV SCH (21:00)
[2021-11-05] VITALS (97 sets, daily range): BP systolic 89–134; BP diastolic 44–80
[2021-11-05] MEDS: CEFEPIME 1,000 MG in DEXTROSE 5% WATER 50 ML IV SCH ×2 (00:10→13:17)
[2021-11-05] MEDS: BLOOD SUGAR DIAGNOSTIC STRIP TEST SCH ×3 (00:10→12:00)
[2021-11-05] MEDS: IPRATROPIUM/ALBUTEROL 0.5-3(2.5)MG/3ML NEB HHN SCH ×4 (01:47→20:42)
[2021-11-05] MEDS: ACETYLCYSTEINE 100MG/ML 10% VIAL 4ML INH SCH ×3 (01:48→14:31)
[2021-11-05 06:00] LABS: HEMATOCRIT. 25.5 % (36.0-48.0); HEMOGLOBIN. 8.1 g/dL (12.0-16.0); MEAN CORPUSCULAR HEMOGLOBIN 28.2 pg (28.0-32.0); MEAN CORPUSCULAR VOLUME 89.2 fL (81.0-99.0); MEAN PLATELET VOLUME 8.3 fl (7.4-10.4); PLATELET 94 x1000/uL (130-400); RED BLOOD CELL COUNT 2.85 mill/uL (4.2-5.4); RED CELL DISTRIBUTION WIDTH 19.7 % (11.6-14.6)
[2021-11-05] MEDS: METRONIDAZOLE 500 MG PREMIX 100 ML IV SCH ×3 (06:05→21:54)
[2021-11-05] MEDS: METHYLPREDNISOLONE SOD SUCC 40 MG/ML VIAL IV SCH ×3 (06:05→21:54)
[2021-11-05 07:11] LABS: PHOSPHORUS 5.7 mg/dL (2.5-4.9)
[2021-11-05 09:18] LABS: BG BASE EXCESS -9.2 mmol/L (-2.0-2.0); BG CARBOXYHEMOGLOBIN 0.3 % (0.5-1.5); BG DEOXYHEMOGLOBIN 3.7 % (0.0-5.0); BG FRACTION INSPIRED OXYGEN 100; BG HCO3 ACT 16.7 mmol/L (22.0-26.0); BG METHEMOGLOBIN 0.3 % (0.0-1.5); BG OXYGEN SATURATION 96.3 % (92.0-98.5); BG OXYHEMOGLOBIN 95.7 % (94.0-97.0); BG PCO2 35.9 mmHg (35.0-45.0); BG PH 7.285 (7.350-7.450); BG PO2 92.4 mmHg (75.0-100.0); BG SAMPLE SITE RIGHT RADIAL; BG TOTAL HEMOGLOBIN 8.8 g/dL (12.0-18.0); BG VENT MODE VENT - PRVC
[2021-11-05] MEDS: MIDODRINE HCL 5MG TABLET PO SCH ×3 (09:32→16:52)
[2021-11-05] MEDS: MULTIVITAMINS,THER W-MINERALS TABLET PO SCH (09:32)
[2021-11-05] MEDS: LACTULOSE 20G/30ML UDC PO SCH (09:32)
[2021-11-05] MEDS: FAMOTIDINE 20MG/2ML VIAL IV SCH (09:32)
[2021-11-05] MEDS: PROPOFOL 10MG/ML 100ML 100 ML IV PRN ×2 (09:38→18:10)
[2021-11-05 10:01] LABS: PLATELET ESTIMATE DECREASED
[2021-11-05 10:45] LABS: INR 2.1; PROTHROMBIN TIME 21.3 sec (9.6-11.0)
[2021-11-05] MEDS ORDERED: LIDOCAINE HCL 1% 20ML VIAL (Pyxis) INJ ONE (13:09)
[2021-11-05] MEDS: DEXT 5%/0.9% NACL 1,000 ML IV SCH (13:17)
[2021-11-05] MEDS: DAPTOMYCIN 500 MG in SODIUM CHLORIDE 0.9% 50 ML IV SCH (13:17)
[2021-11-05] MEDS: NOREPINEPHRINE 32 MG in DEXT 5% WATER 218 ML IV PRN (13:39)
[2021-11-05] MEDS: PHENYLEPHRINE 100 MG in DEXT 5% WATER 240 ML IV PRN (14:42)
[2021-11-05 15:04] LABS: HEPATITIS B SURFACE ANTIGEN NEGATIVE
[2021-11-05] MEDS: FLUCONAZOLE 400MG/200ML BAG 200 ML IV SCH (16:52)
[2021-11-06] VITALS (93 sets, daily range): BP systolic 90–140; BP diastolic 46–86
[2021-11-06] MEDS: BLOOD SUGAR DIAGNOSTIC STRIP TEST SCH ×4 (00:40→17:44)
[2021-11-06] MEDS: ACETYLCYSTEINE 100MG/ML 10% VIAL 4ML INH SCH ×3 (01:51→15:28)
[2021-11-06] MEDS: IPRATROPIUM/ALBUTEROL 0.5-3(2.5)MG/3ML NEB HHN SCH ×4 (01:52→20:22)
[2021-11-06] MEDS: DEXT 5%/0.9% NACL 1,000 ML IV SCH ×2 (02:00→15:01)
[2021-11-06] MEDS: PROPOFOL 10MG/ML 100ML 100 ML IV PRN ×3 (04:58→18:34)
[2021-11-06] MEDS: METRONIDAZOLE 500 MG PREMIX 100 ML IV SCH ×3 (05:24→21:32)
[2021-11-06] MEDS: METHYLPREDNISOLONE SOD SUCC 40 MG/ML VIAL IV SCH ×3 (05:24→21:32)
[2021-11-06] MEDS: PHENYLEPHRINE 100 MG in DEXT 5% WATER 240 ML IV PRN (05:30)
[2021-11-06 06:24] LABS: HEMATOCRIT. 25.8 % (36.0-48.0); HEMOGLOBIN. 8.2 g/dL (12.0-16.0); MEAN CORPUSCULAR HEMOGLOBIN 28.3 pg (28.0-32.0); MEAN CORPUSCULAR VOLUME 88.9 fL (81.0-99.0); MEAN PLATELET VOLUME 8.1 fl (7.4-10.4); PLATELET 57 x1000/uL (130-400); RED CELL DISTRIBUTION WIDTH 19.7 % (11.6-14.6)
[2021-11-06 07:10] LABS: ANTI-NUCLEAR ANTIBODIES DIRECT Negative (Negative)
[2021-11-06 08:10] LABS: PLATELET ESTIMATE DECREASED
[2021-11-06 08:30] LABS: BG BASE EXCESS -9.3 mmol/L (-2.0-2.0); BG CARBOXYHEMOGLOBIN 0.3 % (0.5-1.5); BG DEOXYHEMOGLOBIN 6.3 % (0.0-5.0); BG FRACTION INSPIRED OXYGEN 100; BG HCO3 ACT 17.8 mmol/L (22.0-26.0); BG METHEMOGLOBIN 1.8 % (0.0-1.5); BG OXYGEN SATURATION 93.6 % (92.0-98.5); BG OXYHEMOGLOBIN 91.6 % (94.0-97.0); BG PCO2 43.7 mmHg (35.0-45.0); BG PH 7.227 (7.350-7.450); BG PO2 83.9 mmHg (75.0-100.0); BG SAMPLE SITE RIGHT RADIAL; BG TOTAL HEMOGLOBIN 8.9 g/dL (12.0-18.0); BG VENT MODE PRVC
[2021-11-06] MEDS: FAMOTIDINE 20MG/2ML VIAL IV SCH (09:00)
[2021-11-06] MEDS: MIDODRINE HCL 5MG TABLET PO SCH ×3 (09:00→17:00)
[2021-11-06] MEDS: MULTIVITAMINS,THER W-MINERALS TABLET PO SCH (09:00)
[2021-11-06] MEDS: LACTULOSE 20G/30ML UDC PO SCH (09:00)
[2021-11-06] MEDS: OCTREOTIDE 1,000 MCG in SODIUM CHLORIDE 0.9% 98 ML IV SCH (11:56)
[2021-11-06] MEDS: CEFEPIME 1,000 MG in DEXTROSE 5% WATER 50 ML IV SCH (11:56)
[2021-11-06] MEDS: PHYTONADIONE 10MG/ML AMP SUBCUT SCH (11:56)
[2021-11-06] MEDS ORDERED: SODIUM BICARBONATE 8.4% 1 MEQ/ML 50ML SYR IV SCH (12:00)
[2021-11-06 12:40] LABS: INR 2.3; PROTHROMBIN TIME 22.8 sec (9.6-11.0)
[2021-11-06] MEDS: FLUCONAZOLE 400MG/200ML BAG 200 ML IV SCH (17:44)
[2021-11-07] VITALS (96 sets, daily range): BP systolic 71–150; BP diastolic 36–97
[2021-11-07] MEDS: ACETYLCYSTEINE 100MG/ML 10% VIAL 4ML INH SCH ×2 (00:20→08:40)
[2021-11-07] MEDS: IPRATROPIUM/ALBUTEROL 0.5-3(2.5)MG/3ML NEB HHN SCH ×4 (00:20→21:47)
[2021-11-07] MEDS: PHENYLEPHRINE 100 MG in DEXT 5% WATER 240 ML IV PRN ×2 (01:47→11:00)
[2021-11-07] MEDS: PROPOFOL 10MG/ML 100ML 100 ML IV PRN (03:58)
[2021-11-07 05:23] LABS: HEMATOCRIT. 26.5 % (36.0-48.0); HEMOGLOBIN. 8.5 g/dL (12.0-16.0); MEAN CORPUSCULAR HEMOGLOBIN 28.3 pg (28.0-32.0); MEAN CORPUSCULAR VOLUME 88.4 fL (81.0-99.0); MEAN PLATELET VOLUME 7.9 fl (7.4-10.4); PLATELET 59 x1000/uL (130-400); RED CELL DISTRIBUTION WIDTH 19.2 % (11.6-14.6)
[2021-11-07 05:29] LABS: INR 2.4; PROTHROMBIN TIME 24.2 sec (9.6-11.0)
[2021-11-07] MEDS: METHYLPREDNISOLONE SOD SUCC 40 MG/ML VIAL IV SCH ×3 (05:59→22:00)
[2021-11-07] MEDS: BLOOD SUGAR DIAGNOSTIC STRIP TEST SCH ×4 (05:59→17:56)
[2021-11-07] MEDS: METRONIDAZOLE 500 MG PREMIX 100 ML IV SCH ×2 (05:59→13:05)
[2021-11-07] MEDS: OCTREOTIDE 1,000 MCG in SODIUM CHLORIDE 0.9% 98 ML IV SCH (05:59)
[2021-11-07 08:13] LABS: BG BASE EXCESS -15.2 mmol/L (-2.0-2.0); BG CARBOXYHEMOGLOBIN 0.1 % (0.5-1.5); BG DEOXYHEMOGLOBIN 0.8 % (0.0-5.0); BG FRACTION INSPIRED OXYGEN 100; BG HCO3 ACT 10.3 mmol/L (22.0-26.0); BG METHEMOGLOBIN 0.6 % (0.0-1.5); BG OXYGEN SATURATION 99.2 % (92.0-98.5); BG OXYHEMOGLOBIN 98.5 % (94.0-97.0); BG PCO2 23.5 mmHg (35.0-45.0); BG PH 7.259 (7.350-7.450); BG PO2 210.2 mmHg (75.0-100.0); BG SAMPLE SITE LEFT RADIAL; BG TOTAL RESPIRATORY RATE 26 b/min; BG VENT MODE VENT - AC
[2021-11-07] MEDS: MULTIVITAMINS,THER W-MINERALS TABLET PO SCH (08:21)
[2021-11-07] MEDS: FAMOTIDINE 20MG/2ML VIAL IV SCH (08:22)
[2021-11-07] MEDS: PHYTONADIONE 10MG/ML AMP SUBCUT SCH (08:22)
[2021-11-07] MEDS: MIDODRINE HCL 5MG TABLET PO SCH ×3 (08:22→17:37)
[2021-11-07] MEDS: LACTULOSE 20G/30ML UDC PO SCH (08:24)
[2021-11-07 09:33] LABS: NUCLEATED RED BLOOD CELLS 2 /100 WBC
[2021-11-07 09:34] LABS: PLATELET ESTIMATE DECREASED
[2021-11-07] MEDS: CEFEPIME 1,000 MG in DEXTROSE 5% WATER 50 ML IV SCH (11:23)
[2021-11-07] MEDS ORDERED: PROPOFOL 10MG/ML 100ML 100 ML IV PRN (11:30)
[2021-11-07] MEDS: DAPTOMYCIN 500 MG in SODIUM CHLORIDE 0.9% 50 ML IV SCH (13:05)
[2021-11-07] MEDS: SODIUM BICARBONATE 100 MEQ in DEXTROSE 5% WATER 1,000 ML IV SCH (15:15)
[2021-11-07] MEDS: FLUCONAZOLE 400MG/200ML BAG 200 ML IV SCH (17:34)
[2021-11-07] MEDS: MEROPENEM 1,000 MG in SODIUM CHLORIDE 0.9% 100 ML IV SCH (17:37)
[2021-11-08] VITALS (90 sets, daily range): BP systolic 88–158; BP diastolic 48–107
[2021-11-08] MEDS: BLOOD SUGAR DIAGNOSTIC STRIP TEST SCH ×4 (00:29→17:25)
[2021-11-08] MEDS: IPRATROPIUM/ALBUTEROL 0.5-3(2.5)MG/3ML NEB HHN SCH ×4 (01:05→19:50)
[2021-11-08] MEDS: PHENYLEPHRINE 100 MG in DEXT 5% WATER 240 ML IV PRN ×2 (02:00→17:21)
[2021-11-08] MEDS: OCTREOTIDE 1,000 MCG in SODIUM CHLORIDE 0.9% 98 ML IV SCH (03:00)
[2021-11-08 05:33] LABS: HEMATOCRIT. 25.1 % (36.0-48.0); HEMOGLOBIN. 8.4 g/dL (12.0-16.0); MEAN CORPUSCULAR HEMOGLOBIN 28.6 pg (28.0-32.0); MEAN CORPUSCULAR VOLUME 85.5 fL (81.0-99.0); MEAN PLATELET VOLUME 8.8 fl (7.4-10.4); RED BLOOD CELL COUNT 2.93 mill/uL (4.2-5.4); RED CELL DISTRIBUTION WIDTH 18.8 % (11.6-14.6)
[2021-11-08 05:38] LABS: INR 2.6; PROTHROMBIN TIME 25.5 sec (9.6-11.0)
[2021-11-08] MEDS: METHYLPREDNISOLONE SOD SUCC 40 MG/ML VIAL IV SCH ×3 (06:44→21:53)
[2021-11-08] MEDS: MEROPENEM 1,000 MG in SODIUM CHLORIDE 0.9% 100 ML IV SCH ×2 (06:44→17:22)
[2021-11-08 07:14] LABS: PLATELET ESTIMATE MARKEDLY DECREASED
[2021-11-08 07:15] LABS: PLATELET 47 x1000/uL (130-400)
[2021-11-08 08:20] LABS: BG CARBOXYHEMOGLOBIN 0.3 % (0.5-1.5); BG DEOXYHEMOGLOBIN 0.6 % (0.0-5.0); BG FRACTION INSPIRED OXYGEN 90; BG HCO3 ACT 15.4 mmol/L (22.0-26.0); BG METHEMOGLOBIN 0.5 % (0.0-1.5); BG OXYGEN SATURATION 99.4 % (92.0-98.5); BG OXYHEMOGLOBIN 98.6 % (94.0-97.0); BG PCO2 21.5 mmHg (35.0-45.0); BG PH 7.472 (7.350-7.450); BG PO2 209.8 mmHg (75.0-100.0); BG SAMPLE SITE LEFT RADIAL; BG TOTAL HEMOGLOBIN 8.8 g/dL (12.0-18.0); BG VENT MODE PRVC
[2021-11-08] MEDS: LACTULOSE 20G/30ML UDC PO SCH ×2 (09:00→10:52)
[2021-11-08] MEDS: MIDODRINE HCL 5MG TABLET PO SCH ×3 (10:52→17:22)
[2021-11-08] MEDS: FAMOTIDINE 20MG/2ML VIAL IV SCH (10:52)
[2021-11-08] MEDS: MULTIVITAMINS,THER W-MINERALS TABLET PO SCH (10:52)
[2021-11-08] MEDS: PHYTONADIONE 10MG/ML AMP SUBCUT SCH (10:53)
[2021-11-08] MEDS ORDERED: PROPOFOL 10MG/ML 100ML 100 ML IV PRN (14:30)
[2021-11-08] MEDS: SODIUM BICARBONATE 100 MEQ in DEXTROSE 5% WATER 1,000 ML IV SCH (17:21)
[2021-11-08] MEDS: MICAFUNGIN 150 MG in SODIUM CHLORIDE 0.9% 100 ML IV SCH (17:25)
[2021-11-08 18:02] LABS: BG BASE EXCESS -8.2 mmol/L (-2.0-2.0); BG DEOXYHEMOGLOBIN 0.6 % (0.0-5.0); BG HCO3 ACT 15.4 mmol/L (22.0-26.0); BG METHEMOGLOBIN 0.6 % (0.0-1.5); BG OXYGEN SATURATION 99.4 % (92.0-98.5); BG OXYHEMOGLOBIN 98.8 % (94.0-97.0); BG PCO2 25.2 mmHg (35.0-45.0); BG PH 7.404 (7.350-7.450); BG PO2 287.9 mmHg (75.0-100.0); BG SAMPLE SITE RIGHT RADIAL; BG TOTAL HEMOGLOBIN 8.4 g/dL (12.0-18.0); BG VENT MODE VENT- PRVC
[2021-11-08 18:28] LABS: BG BASE EXCESS -9.6 mmol/L (-2.0-2.0); BG CARBOXYHEMOGLOBIN 0.3 % (0.5-1.5); BG DEOXYHEMOGLOBIN 4.5 % (0.0-5.0); BG FRACTION INSPIRED OXYGEN 44; BG HCO3 ACT 18.8 mmol/L (22.0-26.0); BG OXYGEN SATURATION 95.5 % (92.0-98.5); BG OXYHEMOGLOBIN 95.2 % (94.0-97.0); BG PCO2 55.2 mmHg (35.0-45.0); BG PH 7.151 (7.350-7.450); BG PO2 110.4 mmHg (75.0-100.0); BG SAMPLE SITE LEFT RADIAL; BG TOTAL HEMOGLOBIN 8.7 g/dL (12.0-18.0); BG VENT MODE APNEA TEST
[2021-11-09] VITALS (88 sets, daily range): BP systolic 88–151; BP diastolic 50–98
[2021-11-09] MEDS: BLOOD SUGAR DIAGNOSTIC STRIP TEST SCH ×4 (00:18→17:13)
[2021-11-09] MEDS: IPRATROPIUM/ALBUTEROL 0.5-3(2.5)MG/3ML NEB HHN SCH ×4 (00:41→20:24)
[2021-11-09] MEDS: OCTREOTIDE 1,000 MCG in SODIUM CHLORIDE 0.9% 98 ML IV SCH ×2 (01:24→19:22)
[2021-11-09 05:42] LABS: HEMATOCRIT. 23.7 % (36.0-48.0); HEMOGLOBIN. 7.7 g/dL (12.0-16.0); MEAN CORPUSCULAR HEMOGLOBIN 27.9 pg (28.0-32.0); MEAN PLATELET VOLUME 8.8 fl (7.4-10.4); RED BLOOD CELL COUNT 2.76 mill/uL (4.2-5.4); RED CELL DISTRIBUTION WIDTH 19.4 % (11.6-14.6)
[2021-11-09] MEDS: MEROPENEM 1,000 MG in SODIUM CHLORIDE 0.9% 100 ML IV SCH ×2 (05:52→17:13)
[2021-11-09 05:55] LABS: INR 2.9; PROTHROMBIN TIME 28.8 sec (9.6-11.0)
[2021-11-09] MEDS: METHYLPREDNISOLONE SOD SUCC 40 MG/ML VIAL IV SCH ×3 (05:57→21:14)
[2021-11-09 06:11] LABS: PLATELET 28 x1000/uL (130-400)
[2021-11-09] MEDS ORDERED: LIDOCAINE HCL 1% 20ML VIAL (Pyxis) INJ ONE (07:48)
[2021-11-09 08:02] LABS: BG CARBOXYHEMOGLOBIN 0.4 % (0.5-1.5); BG DEOXYHEMOGLOBIN 12.8 % (0.0-5.0); BG FRACTION INSPIRED OXYGEN 40; BG HCO3 ACT 17.3 mmol/L (22.0-26.0); BG METHEMOGLOBIN 0.3 % (0.0-1.5); BG OXYGEN SATURATION 87.1 % (92.0-98.5); BG OXYHEMOGLOBIN 86.5 % (94.0-97.0); BG PCO2 22.8 mmHg (35.0-45.0); BG PH 7.497 (7.350-7.450); BG PO2 57.5 mmHg (75.0-100.0); BG SAMPLE SITE LEFT RADIAL; BG TOTAL HEMOGLOBIN 8.2 g/dL (12.0-18.0); BG VENT MODE PRVC
[2021-11-09] MEDS: LACTULOSE 20G/30ML UDC PO SCH (09:00)
[2021-11-09] MEDS: FAMOTIDINE 20MG/2ML VIAL IV SCH (10:18)
[2021-11-09] MEDS: PHYTONADIONE 10MG/ML AMP SUBCUT SCH (10:19)
[2021-11-09] MEDS: MULTIVITAMINS,THER W-MINERALS TABLET PO SCH (10:19)
[2021-11-09] MEDS: MIDODRINE HCL 5MG TABLET PO SCH ×3 (10:19→17:13)
[2021-11-09 10:38] LABS: PLATELET ESTIMATE MARKEDLY DECREASED
[2021-11-09] MEDS: MICAFUNGIN 150 MG in SODIUM CHLORIDE 0.9% 100 ML IV SCH (17:13)
[2021-11-09] MEDS: DAPTOMYCIN 500 MG in SODIUM CHLORIDE 0.9% 50 ML IV SCH (17:13)
[2021-11-09] MEDS: SODIUM BICARBONATE 100 MEQ in DEXTROSE 5% WATER 1,000 ML IV SCH (20:11)
[2021-11-09] MEDS: PHENYLEPHRINE 100 MG in DEXT 5% WATER 240 ML IV PRN (20:22)
[2021-11-10] VITALS (73 sets, daily range): BP systolic 67–122; BP diastolic 31–80
[2021-11-10] MEDS: BLOOD SUGAR DIAGNOSTIC STRIP TEST SCH ×3 (00:16→12:00)
[2021-11-10] MEDS: IPRATROPIUM/ALBUTEROL 0.5-3(2.5)MG/3ML NEB HHN SCH ×3 (02:28→14:01)
[2021-11-10 05:45] LABS: INR 2.7; PROTHROMBIN TIME 27.1 sec (9.6-11.0)
[2021-11-10] MEDS: MEROPENEM 1,000 MG in SODIUM CHLORIDE 0.9% 100 ML IV SCH (05:57)
[2021-11-10] MEDS: METHYLPREDNISOLONE SOD SUCC 40 MG/ML VIAL IV SCH ×2 (05:57→13:37)
[2021-11-10 08:05] LABS: BG BASE EXCESS -7.7 mmol/L (-2.0-2.0); BG CARBOXYHEMOGLOBIN 0.4 % (0.5-1.5); BG DEOXYHEMOGLOBIN 8.1 % (0.0-5.0); BG FRACTION INSPIRED OXYGEN 40; BG HCO3 ACT 15.3 mmol/L (22.0-26.0); BG METHEMOGLOBIN 0.1 % (0.0-1.5); BG OXYGEN SATURATION 91.9 % (92.0-98.5); BG OXYHEMOGLOBIN 91.4 % (94.0-97.0); BG PCO2 23.4 mmHg (35.0-45.0); BG PH 7.433 (7.350-7.450); BG PO2 69.6 mmHg (75.0-100.0); BG SAMPLE SITE LEFT RADIAL; BG TOTAL HEMOGLOBIN 9.4 g/dL (12.0-18.0); BG VENT MODE PRVC
[2021-11-10 09:16] LABS: BG BASE EXCESS -10.5 mmol/L (-2.0-2.0); BG CARBOXYHEMOGLOBIN 0.2 % (0.5-1.5); BG DEOXYHEMOGLOBIN 6.3 % (0.0-5.0); BG FRACTION INSPIRED OXYGEN 100; BG METHEMOGLOBIN 0.5 % (0.0-1.5); BG OXYGEN SATURATION 93.7 % (92.0-98.5); BG PCO2 31.7 mmHg (35.0-45.0); BG PH 7.292 (7.350-7.450); BG PO2 87.8 mmHg (75.0-100.0); BG SAMPLE SITE RIGHT RADIAL; BG TOTAL HEMOGLOBIN 9.5 g/dL (12.0-18.0); BG VENT MODE PRVC
[2021-11-10] MEDS: MULTIVITAMINS,THER W-MINERALS TABLET PO SCH (09:23)
[2021-11-10] MEDS: FAMOTIDINE 20MG/2ML VIAL IV SCH (09:23)
[2021-11-10] MEDS: LACTULOSE 20G/30ML UDC PO SCH (09:23)
[2021-11-10] MEDS: MIDODRINE HCL 5MG TABLET PO SCH ×2 (09:23→13:37)
[2021-11-10 09:32] LABS: BG BASE EXCESS -12.6 mmol/L (-2.0-2.0); BG CARBOXYHEMOGLOBIN 0.2 % (0.5-1.5); BG DEOXYHEMOGLOBIN 78.9 % (0.0-5.0); BG HCO3 ACT 16.7 mmol/L (22.0-26.0); BG METHEMOGLOBIN 2.8 % (0.0-1.5); BG OXYGEN SATURATION 18.7 % (92.0-98.5); BG OXYHEMOGLOBIN 18.1 % (94.0-97.0); BG PCO2 56.1 mmHg (35.0-45.0); BG PH 7.092 (7.350-7.450); BG PO2 < 30.3 mmHg (75.0-100.0); BG SAMPLE SITE RIGHT RADIAL; BG TOTAL HEMOGLOBIN 9.1 g/dL (12.0-18.0); BG VENT MODE NASAL CANNULA
[2021-11-10] MEDS: PHENYLEPHRINE 100 MG in DEXT 5% WATER 240 ML IV PRN (09:59)
[2021-11-10] MEDS ORDERED: MORPHINE SULFATE 4 MG/ML CPJ (NOT FOR IM USE) IV PRN ×2 (10:15→10:45)
[2021-11-10] MEDS: NOREPINEPHRINE 32 MG in DEXT 5% WATER 218 ML IV PRN (14:28)
[2021-11-10] MEDS: OCTREOTIDE 1,000 MCG in SODIUM CHLORIDE 0.9% 98 ML IV SCH (15:32)
== END 2021-11-10 16:33 | DRG 720 ==
LOC: ER 11:46 → EDBEDREQTM 19:10 → 4WST 19:22 → EDBEDREQ 19:32 → EDBEDREQTM 19:32 → ENRESERV 23:13 → MICUNO 10-22 19:29 → 5EST 10-24 21:35 → CVICU 10-30 16:35
PROVIDERS: ADMIT Internal Medicine; ATTEND Internal Medicine
PROC: 30233N1 Transfusion of Nonautologous Red Blood Cells into Peripheral Vein, Percutaneous Approach (ICD-10-PCS; 2021-10-22)
PROC: 02HV33Z Insertion of Infusion Device into Superior Vena Cava, Percutaneous Approach (ICD-10-PCS; 2021-10-23)
PROC: B548ZZA Ultrasonography of Superior Vena Cava, Guidance (ICD-10-PCS; 2021-10-23)
PROC: 5A1955Z Respiratory Ventilation, Greater than 96 Consecutive Hours (ICD-10-PCS; principal; 2021-10-30)
PROC: 0BH17EZ Insertion of Endotracheal Airway into Trachea, Via Natural or Artificial Opening (ICD-10-PCS; 2021-10-30)
PROC: 5A1D70Z Performance of Urinary Filtration, Intermittent, Less than 6 Hours Per Day (ICD-10-PCS; 2021-11-05)
PROC: 02HV33Z Insertion of Infusion Device into Superior Vena Cava, Percutaneous Approach (ICD-10-PCS; 2021-11-05)
PROC: B548ZZA Ultrasonography of Superior Vena Cava, Guidance (ICD-10-PCS; 2021-11-05)
PROC: 5A1D70Z Performance of Urinary Filtration, Intermittent, Less than 6 Hours Per Day (ICD-10-PCS; 2021-11-06)
PROC: 5A1D70Z Performance of Urinary Filtration, Intermittent, Less than 6 Hours Per Day (ICD-10-PCS; 2021-11-07)
PROC: 5A1D70Z Performance of Urinary Filtration, Intermittent, Less than 6 Hours Per Day (ICD-10-PCS; 2021-11-09)
PROC: 02HV33Z Insertion of Infusion Device into Superior Vena Cava, Percutaneous Approach (ICD-10-PCS; 2021-11-09)
PROC: B548ZZA Ultrasonography of Superior Vena Cava, Guidance (ICD-10-PCS; 2021-11-09)
DX: A41.9 Sepsis, unspecified organism (principal); N17.0 Acute kidney failure with tubular necrosis; J69.0 Pneumonitis due to inhalation of food and vomit; R65.21 Severe sepsis with septic shock; E43 Unspecified severe protein-calorie malnutrition; E87.2 Acidosis; B49 Unspecified mycosis; G93.41 Metabolic encephalopathy; Z66 Do not resuscitate; K85.90 Acute pancreatitis without necrosis or infection, unspecified; J80 Acute respiratory distress syndrome; E72.20 Disorder of urea cycle metabolism, unspecified; D68.9 Coagulation defect, unspecified; D69.6 Thrombocytopenia, unspecified; D62 Acute posthemorrhagic anemia; E87.8 Other disorders of electrolyte and fluid balance, not elsewhere classified; E87.1 Hypo-osmolality and hyponatremia; E87.6 Hypokalemia; K80.20 Calculus of gallbladder without cholecystitis without obstruction; I86.8 Varicose veins of other specified sites; Z16.21 Resistance to vancomycin; E16.2 Hypoglycemia, unspecified; N39.0 Urinary tract infection, site not specified; H26.9 Unspecified cataract; K70.11 Alcoholic hepatitis with ascites; K76.6 Portal hypertension; F10.10 Alcohol abuse, uncomplicated; K76.0 Fatty (change of) liver, not elsewhere classified; I51.7 Cardiomegaly; S00.83XA Contusion of other part of head, initial encounter; X58.XXXA Exposure to other specified factors, initial encounter; Y93.89 Activity, other specified; Y92.89 Other specified places as the place of occurrence of the external cause; Y99.8 Other external cause status; Z59.00 Homelessness unspecified; Z98.891 History of uterine scar from previous surgery; Z87.891 Personal history of nicotine dependence; Z68.31 Body mass index [BMI] 31.0-31.9, adult
CPT/HCPCS: 36415; 36556; 36600; 70486; 70551; 71045; 74018; 74176; 74177; 76700; 76770; 76937; 80048; 80053; 80061; 80076; 80202; 80305; 80320; 81003; 82140; 82150; 82270; 82375; 82533; 82550; 82607; 82728; 82746; 82805; 82962; 83540; 83550; 83735; 83880; 83930; 84100; 84145; 84443; 84478; 84703; 85014; 85018; 85025; 85044; 85049; 85384; 86038; 86160; 86705; 86709; 86803; 86850; 86870; 86880; 86900; 86920; 87070; 87077; 87106; 87186; 87340; 93005; 94003; 94640; 97163; 97165; 99285; A6261; C1725; C1752; C1893; C9113; J0330; J0692; J0878; J1450; J1885; J2020; J2185; J2248; J2250; J2270; J2354; J2370; J2704; J2765; J2920; J2930; J3010; J3370; J3430; J3475; J3480; J3490; J7030; J7040; J7042; J7050; J7060; J7070; J7608; P9016; Q9967; G0480